=== PATIENT | male | born 1955 | race Caucasian/White ===

== ENCOUNTER → 2018-12-16 12:26 | Outpatient (CLI) | payer BC ==
[2015-06-29 17:22] VITALS: BMI 31.2
[~2018-12-16 12:26] MED LIST: ASPIRIN325 MG PO; CHILDREN'S ASPI81 MG PO; LISINOPRIL10 MG PO; NORVASC10 MG PO; PLAVIX75 MG PO; PRAVACHOL40 MG PO; ZESTORETIC 20-1 EACH PO
--- NOTE | 2018-12-27 12:04 | EC ---
PATIENT:MAITE WATSON DATE OF SERVICE: 12/16/18 SEX: M MEDICAL RECORD: [id number] DATE OF : [birth year] [facility] AGE OF PATIENT: 63 ADMISSION DATE: 12/16/18 REFERRING PHYSICIAN: INTERPRETING PHYSICIAN: LORENZA RIVERS MD ECHOCARDIOGRAM REPORT ECHO CHARGES 4 ECHO COMPLETE Date: 12/16/18 CLINICAL DIAGNOSIS: FATIGUE/BRADYCARDIA H/O CAD/HTN ECHOCARDIOGRAPHIC MEASUREMENTS (adult normal given) AC root (d.<3.7cm) 3.7 cm LV Septum d (<1.2 cm> 0.9 cm Valve Excursion 2.3 cm LV Septum (systole) 1.9 cm Left Atria (s.<4.0cm> 4.2 cm LVPW d(<1.2cm) 1.2 cm RV (d.<2.3cm) 3.6 cm LVPW (sytole) 1.9 cm LV diastole(<5.6CM) 6.3 cm MV E-F(>70mm/sec) cm LV systole 3.1 cm LVOT Diameter 2.1 cm MV exc.(>10mm) cm Est.ejection fraction (50-75%) % DOPPLER: LVIT cm/sec A 50.0 cm/sec E 72.0 cm/sec LA cm/sec RVSP 34.0 mmHg LVOT 125 cm/sec AOP1/2T m/s Asc. Ao 160 cm/sec RVOT 63.0 cm/sec RA cm/sec PA 112.0cm/sec AV Gradient Peak 10.2 mmHg AV Mean 5.9 mmHg AV Area 2.5 cm MV Gradient Peak 3.4 mmHg MV Mean 0.88 mmHg MV Area cm COMMENTS: OP - HC Marketing Designer: Jelena ORONA WESTON Optomechanical Engineer: 1 Dr. Rivers TAPE# PACS Pericardial Effusion N DATE OF SERVICE: 12/16/2018 ECHOCARDIOGRAM FINDINGS: 1. Left ventricular chamber size is within normal limits. Left ventricular systolic function is normal. Overall ejection fraction estimated at 60%. 2. Left atrium is enlarged at 4.2 cm. Right atrium and right ventricular chamber sizes are as well mildly dilated. 3. Valvular structures have normal structure and motion. ECHOCARDIOGRAM REPORT [id number] MAITE WATSON 4. Doppler interrogation reveals mild mitral regurgitation, mild tricuspid regurgitation, no other valvular insufficiency or stenosis. Pulmonary systolic pressure is normal estimated at 34 mmHg. 5. No evidence of pericardial effusion or left ventricular thrombus. TRANSINT:[id number] Voice Confirmation ID: [id number] DOCUMENT ID: [id number] LORENZA RIVERS MD at 1204 CC: [id number] DICTATION DATE: 12/16/18 1526 FRAUD INVESTIGATOR: 12/16/18 1616 DEP CLI 12/16/18 [place] [id number] [place] [id number]
== END | disposition home or self-care (01) ==
LOC: D.HCCARDIO 12-12 13:00
PROVIDERS: ATTEND Internal Medicine Interventional Cardiology
DX: I25.10 Atherosclerotic heart disease of native coronary artery without angina pectoris (principal)